=== PATIENT | female | born 1990 | race Caucasian/White ===

== ENCOUNTER 2024-11-23 09:25 | Emergency (ER) | payer OTHER, SELFPAY ==
[2024-11-23 09:38] VITALS: BP 123/71; PULSE 87; RESP 13; O2SAT 100
--- NOTE | 2024-11-23 10:32 | ED.SKABFB ---
HPI - Skin/Abscess/Foreign Bdy General Chief complaint: Skin/Abscess/Foreign Body Stated complaint: pain on left breast. Hurts when she breathes today Time Seen by Provider: 11/23/24 10:28 Source: patient Mode of arrival: Ambulatory Limitations: no limitations History of Present Illness HPI narrative: 34-year-old female presents with left breast pain that has been going off for the past year but she reports that it has been getting more hard and painful and came in today to be evaluated. Patient denies any redness discharge bleeding fever chills trauma to the area shortness of breath cough or any history of of our family history of breast cancer. Other than what is day 14 point review of system is negative Related Data Allergies Allergy/AdvReac Type Severity Reaction Status Date / Time No Known Drug Allergies Allergy Verified 11/23/24 09:38 Review of Systems Review of Systems ROS Unobtainable: All systems reviewed & are unremarkable except as noted in HPI and below Patient History Social History Smoking Status: Unknown if ever smoked Smoking Status: Unknown if ever smoked Exam Narrative Exam Narrative: GENERAL: [34] year old patient appears stated age. Well-developed patient, in mild distress. HEAD: Atraumatic. Normocephalic. EYES: Pupils equal round and reactive. Extraocular motions intact. No scleral icterus. No injection or drainage. L breast - firm mass palpable at 12 oclock position EXTREMITIES: No edema or joint tenderness. BACK: Nontender without deformity or crepitance. No flank tenderness. NEURO: AOx3. SKIN: No rash or erythema of visible areas Initial Vital Signs Initial Vital Signs: Vital Signs Pulse Rate 87 11/23/24 09:38 Respiratory Rate 13 11/23/24 09:38 Blood Pressure 123/71 11/23/24 09:38 Pulse Oximetry 100 11/23/24 09:38 Oxygen Delivery Method Room Air 11/23/24 09:38 Course Orders Ordered: ED Orders 11/23/24 10:34 US breast LT limited Stat Vital Signs Vital signs: Vital Signs - 8 hr 11/23/24 09:38 Pulse Rate 87 Respiratory Rate 13 Blood Pressure 123/71 Pulse Oximetry 100 Oxygen Delivery Method Room Air MDM - Skin/Abscess/Foreign Bdy MDM Narrative Medical decision making narrative: US Large mass 8cm per breast radiologist who will arrange mammogram and us guided biopsy urgently as outpatient. Differential dx fibroadenoma, fibrocystic breast disease, breast ca. return with new or worsening symptoms and to follow up with outpatient procedures and studies Discharge Plan Departure Patient Disposition: Home Clinical Impression: Breast lump or mass Qualifiers: Laterality: left Breast mass location: overlapping quadrants Qualified Code(s): N63.25 - Unspecified lump in the left breast, overlapping quadrants Instructions: DI for Breast Mass -- Uncertain Cause Activity Restrictions/Additional Instructions: Follow-up for mammogram and ultrasound guided biopsy of the breast Referrals: ProviderBenjamin [Primary Care Provider] - Stand Alone Forms: Patient Portal/API/Survey
--- NOTE | 2024-11-23 10:34 | DI.US.S_ITS ---
US breast LT limited: 11/23/2024. BI-RADS: 4B CLINICAL: 34-year old female for left diagnostic breast ultrasound. Tyrer-Cuzick lifetime risk of 10.0%. Patient reports a palpable abnormality in the left breast for many years, with new onset pain that prompted the patient to visit the ED. PRIOR EXAMS No prior examinations available. ULTRASOUND TECHNIQUE: Left targeted breast ultrasound of the area of clinical interest and the axilla was performed with image documentation. Real-time patiño scale and color doppler imaging of the area of clinical interest was performed with image documentation. ULTRASOUND FINDINGS Left: Upper at 12:00, 5 cm from nipple, measuring 8 x 6.2 x 4.4 cm: There is a complex cystic and solid mass with internal vascularity. There is no abscess or drainable fluid collection. Left: Prominent but non-enlarged lymph nodes are seen in the left axilla, demonstrating normal fatty miguel and no abnormal cortical thickening; likely reactive. IMPRESSION: Left: Upper at 12:00, 5 cm from nipple, measuring 8 x 6.2 x 4.4 cm * Moderate Suspicion of Malignancy. RECOMMENDATIONS Left: Upper at 12:00, 5 cm from nipple * Further evaluation with diagnostic mammography (Bilateral diagnostic mammogram is recommended to complete the imaging workup with subsequent ultrasound guided biopsy of the mass). * Ultrasound-guided biopsy for further evaluation. COMMENTS: Findings and recommendation were discussed with Dr. Ge by the interpreting radiologist. OVERALL ASSESSMENT CATEGORY BI-RADS-4: Suspicious. ELECTRONICALLY SIGNED: Merry Grier M.D. on 11/23/2024 at 11:49:05 AM PT Interpreting Station ID: [id number]
[2024-11-23 11:52] VITALS: BP 118/79; PULSE 80; RESP 18; TEMP 36.6; O2SAT 100
== END 2024-11-23 11:54 | disposition home or self-care (01) ==
PROVIDERS: Emergency Provider Family Medicine
DX: N63.25 Unspecified lump in the left breast, overlapping quadrants (principal)
CPT/HCPCS: 76642; 99281; 99283

== ENCOUNTER → 2025-01-17 13:02 | Outpatient (CLI) | payer OTHER, SELFPAY ==
--- NOTE | 2025-01-17 14:21 | DI.US.S_ITS ---
US breast BI limited, MM diagnostic mammo BI: 01/17/2025 BI-RADS: 5 CLINICAL: 34-year old female for bilateral diagnostic mammogram and bilateral diagnostic breast ultrasound that is a follow-up to diagnostic breast ultrasound on 11/23/2024. [facility] 9.[facility]%. No personal or first-degree family history of breast cancer. The patient reports a palpable abnormality (more than 2 years) and pain (1 year) in the left breast. PRIOR EXAMS Breast Ultrasound(s): 11/23/2024. MAMMOGRAPHY TECHNIQUE: 2D and 3D (tomosynthesis) digital mammographic views obtained, with additional images as needed for full coverage. Current study was also evaluated with a Computer Aided Detection (CAD) system. ULTRASOUND TECHNIQUE Real-time patiño scale and color doppler imaging of the area of clinical interest was performed with image documentation. MAMMOGRAPHY FINDINGS Right: Lower at 6:00, Posterior depth, measuring 1.5cm: There is a circumscribed, oval mass present. Left: Central, Middle depth, measuring 7 x 7 x 8cm: Correlating with palpable lump there is an indistinct, oval mass present. ULTRASOUND FINDINGS Right: Upper at 12:00, 4 cm from nipple, measuring 1.2 x 0.8 x 0.8 cm: There is an oval, circumscribed, hypoechoic mass that is parallel. This is likely a fibroadenoma. Right: Lower at 6:00, 4 cm from nipple, measuring 1.7 x 1.4 x 1 cm: There is an oval, circumscribed, hypoechoic mass that is parallel. This is likely a fibroadenoma. Right: Axilla: No abnormal lymph nodes are seen in the axilla. Left: Upper at 12:00, 5 cm from nipple, measuring 9.2 x 6.2 x 5.1 cm: Corresponding to palpable concern and mammographic finding, there is redemonstration of complex cystic and solid mass with internal vascularity. Previously this mass measured 8 x 6.2 x 4.4 cm on 11/23/2024. Left: Axilla: No abnormal lymph nodes are seen in the axilla. IMPRESSION: Right (Mass): Upper at 12:00, 4 cm from nipple, measuring 1.2 x 0.8 x 0.8 cm * Probably Benign. Right (Mass): Lower at 6:00, 4 cm from nipple, measuring 1.7 x 1.4 x 1 cm * Probably Benign. Left: Upper at 12:00, 5 cm from nipple, measuring 9.2 x 6.2 x 5.1 cm * Highly Suggestive of Malignancy. RECOMMENDATIONS Right: Upper at 12:00, 4 cm from nipple * Defer management pending biopsy results. Right: Lower at 6:00, 4 cm from nipple * Defer management pending biopsy results. Left: Upper at 12:00, 5 cm from nipple * Ultrasound-guided biopsy for further evaluation. COMMENTS: The above findings and recommendations were discussed with the patient by Dr. Gilmore over the phone at the time of imaging completion. OVERALL ASSESSMENT CATEGORY BI-RADS-5: Highly Suggestive of Malignancy. ELECTRONICALLY SIGNED: Pia Gilmore M.D. on 01/17/2025 at 05:19:45 PM PT Interpreting Station ID: [id number]
== END ==
PROVIDERS: Referring Provider Physician Assistant; Visit Provider Physician Assistant
DX: N63.12 Unspecified lump in the right breast, upper inner quadrant (principal); N63.13 Unspecified lump in the right breast, lower outer quadrant; N63.21 Unspecified lump in the left breast, upper outer quadrant
CPT/HCPCS: 76642; 77066; G0279

== ENCOUNTER 2025-03-13 12:38 | Day surgery (SDC) | payer OTHER, SELFPAY ==
[2025-03-07 14:09] VITALS: BMI 21.0
[2025-03-13] VITALS (7 sets, daily range): BP systolic 107–128; BP diastolic 61–81; PULSE 62–86; RESP 9–25; TEMP 36.2–36.6; O2SAT 100; BMI 20.5
--- NOTE | 2025-03-13 | PATH_ITS ---
[facility] Accession Number: [id number] No. of containers..01 Tissue . 01 Material submitted: . breast - LEFT BREAST MASS . 01 Diagnosis: LEFT BREAST MASS: Fibroglandular lesion (8.0 x 6.9 x 6.5 cm). Outside consultation pending for further classification; that interpretation will be reported as an addendum. [facility] 03/20/2025 1554 Local . 01 Comment: This case was also reviewed by Drs. Joanie Mclean and Modesta Bingham (Julie). . 01 Electronically signed: . Milla Jasmine MD, Pathologist NPI- [id number] . 01 Gross description: . Received in formalin with two identifiers and left breast mass, is an unoriented monroy to yellow, presumably encapsulated, soft tissue fragment weighing 173 grams and measuring 8.0 x 6.9 x 6.5 cm. The external surface is slightly roughened and diffusely lobulated, and is inked blue. The specimen is serially sectioned into 12 slices. Slices 1-7 have a pink-monroy, soft, fleshy cut surface with a small amount of pinpoint hemorrhage, less than 10% of the cut surface. Slices 8-12 have a heterogenous, monroy to brown cut surface with numerous cystic areas ranging from 0.1 to 0.8 cm in greatest dimension filled with omnroy serous fluid. Flying Shear Operator sections are submitted as follows: . A1: Rep slice 1 perpendicular. A2: Rep slice 3. A3: Rep slice 5. A4: Rep slice 8. A5: Rep slice 10. A6: Rep slice 11. A7: Rep slice 12. A8-A11: Additional sections submitted. . The specimen was removed on 03/13/2025. Time not provided. Cold ischemic time cannot be calculated. Total fixation time is approximately 32 hours. ([id number]) . . Tissue to include margin and adipose are submitted in cassettes A8-A11. ([id number]) /MRV 03/20/2025 1554 Local . 01 Pathologist provided ICD-10: D24.2 . 01 CPT . 133259 Specimen Comment: A courtesy copy of this report has been sent to [phone] Performed at: [address] [id number] MD Darrian Sibley MD Phone: [phone]
[2025-03-13] MEDS: LACTATED RINGERS 1,000 ML 84 ML IV ×2 (14:54→18:25)
--- NOTE | 2025-03-13 15:58 | PM.HP.IH.1 ---
History of Present Illness History of Present Illness Date Patient Seen: 03/13/25 Time Patient Seen: 15:58 Chief complaint: NHC Narrative: Lyka for an excisional biopsy of her left breast mass. See the office note for more details. PFSH Social History household members: spouse Smoking Status: Never smoker Meds Home Medications and Allergies Home Medications ?Medication ?Instructions ?Recorded ?Confirmed ?Type No Known Home Medications 03/13/25 03/13/25 History Allergies Allergy/AdvReac Type Severity Reaction Status Date / Time No Known Drug Allergies Allergy Verified 03/13/25 14:28 Exam Vital Signs (past 8 hours): - 03/13/25 14:39 Temperature 97.9 F Pulse Rate 62 Respiratory Rate 16 Blood Pressure 112/75 Pulse Oximetry 100 Narrative Exam Narrative: Large firm mass upper outer quadrant of the left breast Assessment & Plan Assessment and plan (1) Fibroadenoma of left breast: Status: Acute Plan Excisional biopsy of left breast mass Time-Based Coding :: [TOTAL MINUTES] spent with patient and on the chart (including review of chart, obtaining history, exam, reviewing outside data, placing orders, documenting exam and treatment plan, and counseling patient) on [DATE]. PROFEE P[employer] Egg Document charge(s): No
[2025-03-13] MEDS: ACETAMINOPHEN 325 MG TABLET 975 MG PO (16:10)
--- NOTE | 2025-03-13 16:37 | SUR.OPER ---
Supine on padded OR bed, head on pillow, arms secured on padded arm boards at <90 degrees abduction, legs uncrossed, safety belt at thigh, tape over blanket over lower legs. Dr. Rodrigues in room at time of positioning and approved final position
[2025-03-13] MEDS: BUPIVACAINE 0.5% W/ EPI (PF) 30 ML VIAL INJ (16:40)
--- NOTE | 2025-03-13 17:49 | PM.OP.1 ---
Operative Date/Time/Diagnoses Date of procedure: 03/13/25 Time of procedure: 17:49 Pre-op diagnosis: Left breast fibroadenoma Post-op diagnosis: same Procedure & Clinicians Procedure: Excisional biopsy of left breast fibroadenoma Same procedure(s) as scheduled: Yes Surgeon: [facility] [employer] Officer: Jose Lamas Anesthesia Type: General Operative Notes Findings: 9 cm x 8 cm x 7 cm lobulated breast mass weighing 175 g Applied: none Estimated Blood Loss (mL): 20 Procedure in detail: The patient was brought to the operating room and general anesthesia was induced via LMA. She was then positioned supine with the left arm abducted. The left breast was prepped and draped in the usual fashion and a time-out was performed. A 9 cm incision was created radially from the areolar border towards the axilla and then curving around the inferior lateral portion of the areolar border. We dissected down through the dermis and quickly encountered a firm lobular but well-defined mass. As we dissected around in all directions there were some areas of dense fibrotic tissue which was felt to be reactive tissue. The deepest aspect of the mass extended down to the pectoral muscle fibers. Once the mass was completely excised it was measured and weighed. It measured 9 cm x 8 cm x 7 cm and weighed 175 g. A few bleeders were cauterized within the wound bed. The tissue in the wound was soft. The wound cavity was irrigated with sterile water. Additional local was injected into the dermis and deep tissue. The wound was then closed in layers using multiple interrupted 3-0 Vicryl dermal sutures followed by a running 4-0 Monocryl subcuticular closure. EBL: 30 mL Specimen: Left breast mass Jose ROBERTO provided assistance with exposure, retraction and closure of incisions. Complications: none Post-operative Condition: stable Disposition: PACU
[2025-03-13] MEDS: ONDANSETRON 4 MG/2 ML INJ IV (18:22)
[2025-03-13] MEDS: hydrOXYzine 50 MG/ML INJ 25 MG IM (18:34)
[2025-03-13] MEDS: METOCLOPRAMIDE 10 MG/2 ML INJ IV (18:35)
== END 2025-03-13 19:01 | disposition home or self-care (01) ==
PROVIDERS: PCP Nurse Practitioner Family; Referring Provider Surgery; Visit Provider Surgery
PROC: (CPT 19120; principal; 2025-03-13 15:15)
DX: D24.2 Benign neoplasm of left breast (principal)
CPT/HCPCS: 19120; J1100; J1885; J2250; J2405; J2704; J2765; J3010; J3410